=== PATIENT | male | born 1965 | race African-American/Black ===

== ENCOUNTER 2021-02-17 18:46 | Emergency (ER) | payer OTHER ==
[~2021-02-17] VITALS: Ht 180.3 cm; Wt 83.9 kg
--- NOTE | ~2021-02-17 | EMS ---
[facility] [address] [place] [address] EMS Patient Care Report Name: GENESIS BERNAL Room #: DEP MONA Brandon#: [id number] Admission: 02/17/21 Attend Phys: Discharge: 02/17/21 Date of : 69 Report #: [id number] THIS REPORT FOR: //name// Report Transmitted: 02/20/2021 13:39 EMS Care Summary [place], [place]/[facility] Incident [id number] @ 02/17/2021 18:08 Incident Location [address] [place] [address] Patient GENESIS BERNAL Male, 55 Years 1965 Patient Address Chief Complaint Possible overdose Disposition Transported No Lights/[place] Dis[place] Reason Unknown Problem/Person Down Transported To [facility] Narrative M42 arrived on scene to find the patient sitting upright not responding to questions. Patient had been wondering around in the store but just not acting right. Patient had dilated pupils. Patient would not answer any questions. Patient was moved to the cot and secured with seat belts. En route to the hospital no changes in the patient condition occurred. M42 arrived on scene of the hospital and patient care was transferred to the RN. Initial Vitals @18:32P: 74,BP: 131/72,SpO2: 98, @18:37P: 82,R: 16,BP: 128/83,Pain: 0/10,GCS: 13,Glucose: 118,SpO2: 98,Revised Trauma: 12, Assessments [facility] [address] [place] [address] EMS Patient Care Report Name: GENESIS BERNAL Room #: DEP MONA Brandon#: [id number] Admission: 02/17/21 Attend Phys: Discharge: 02/17/21 Date of : 69 Report #: [id number] @18:18MENTAL:Confused,SKIN:No Abnormalities,HEENT:Eyes: Right: Dilated,Eyes: Left: Dilated,Head/Face: No Abnormalities,Neck/Airway: No Abnormalities,LUNG SOUNDS:General: No Abnormalities,Left Upper: No Abnormalities,Right Upper: No Abnormalities,Left Lower: No Abnormalities,Right Lower: No Abnormalities,ABDOMEN:General: No Abnormalities,Left Upper: No Abnormalities,Right Upper: No Abnormalities,Left Lower: No Abnormalities,Right Lower: No Abnormalities,PELVIS//GI:No Abnormalities,EXTREMITIES:Left Arm: No Abnormalities,Right Arm: No Abnormalities,Left Leg: No Abnormalities,Right Leg: No Abnormalities,PULSE:NEURO:No Abnormalities,@18:39MENTAL:Confused,SKIN:No Abnormalities,HEENT:Eyes: Left: Dilated,Eyes: Right: Dilated,Head/Face: No Abnormalities,Neck/Airway: No Abnormalities,LUNG SOUNDS:General: No Abnormalities,Left Upper: No Abnormalities,Right Upper: No Abnormalities,Left Lower: No Abnormalities,Right Lower: No Abnormalities,ABDOMEN:General: No Abnormalities,Left Upper: No Abnormalities,Right Upper: No Abnormalities,Left Lower: No Abnormalities,Right Lower: No Abnormalities,PELVIS//GI:No Abnormalities,EXTREMITIES:Left Arm: No Abnormalities,Right Arm: No Abnormalities,Left Leg: No Abnormalities,Right Leg: No Abnormalities,PULSE:NEURO:No Abnormalities, Impression Overdose - Unspecified Procedures @18:18 ALS Assessment Response: UnchangedSucceeded Timeline 18:07,Call Received 18:07,Dispatch Notified 18:08,Dispatched 18:11,En Route 18:17,On Scene 18:18,At Patient 18:18,ALS Assessment,Response: UnchangedSucceeded, 18:30,Depart Scene 18:32,BP: 131/72 M,PULSE: 74,RR: R,SPO2: 98 Ox,ETCO2: ,BG: ,PAIN: ,GCS: , 18:37,BP: 128/83 M,PULSE: 82,RR: 16 R,SPO2: 98 Ox,ETCO2: ,B,PAIN: 0,GCS: 13, 18:49,At Destination 18:56,Call Closed Disclaimer v1.1 Copyright 2021 [email or web address] This EMS Care Summary contains data elements from the applicable legal record (which may be displayed differently). It is designed to provide pertinent information for the following purposes: continuity of care, clinical quality, [address] [address] EMS Patient Care Report Name: GENESIS BERNAL Room #: DEP ER Aleksandr#: [id number] Admission: 02/17/21 Attend Phys: Discharge: 02/17/21 Date of : 69 Report #: [id number] and state data reporting. The complete legal record is available to ED staff and administrators of the receiving hospital in [employer]'s Patient Tracker. All data is provided "as is."
[2021-02-17 19:07] VITALS: BP 126/80
== END 2021-02-17 19:26 | disposition left against medical advice (07) ==
LOC: ER 18:46
DX: R41.82 Altered mental status, unspecified (principal); Z71.1 Person with feared health complaint in whom no diagnosis is made; Z21 Asymptomatic human immunodeficiency virus [HIV] infection status; Z53.21 Procedure and treatment not carried out due to patient leaving prior to being seen by health care provider